=== PATIENT | female | born 1960 | race Caucasian/White ===

== ENCOUNTER 2016-10-06 19:05 | Emergency (ER) | payer MEDICARE, OTHER ==
[2016-10-06 19:15] VITALS: BP 139/96
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
--- OUTSIDE RECORDS SUMMARY | 2016-10-06 20:20 | XMS REPORT | Continuity of Care Document ---
:1960 Author Organization [place] [place] [address] Care Team Providers Name Role Phone Provider, None Per Patient Primary Care Provider Unavailable Source Comments This disclosure is being made pursuant to the [employer] program and maynot contain all information available regarding this patient.[facility] Active Allergies and Adverse Reactions Allergen Noted Date Severity Reactions Comments Ciprofloxacin 09/04/2016 Medium Nausea And Vomiting Codeine 09/04/2016 Medium Nausea And Vomiting Latex 09/04/2016 Low Rash Morphine 09/04/2016 Medium Nausea And Vomiting Current Medications Be aware that medications may not be up to date as of this document. Alwaysverify current medications with the patient. Prescription Sig. Disp. Refills Start Date End Date Status amoxicillin (AMOXIL) Take 1 oral q 8 30 capsule 0 09/04/2016 Active 500 MG capsule hour for 10 days benzonatate (TESSALON Take 1 capsule by 30 capsule 0 09/04/2016 Active PERLES) 100 MG capsule mouth every 6 (six) hours as needed for Cough. Active Problems Not on file Most Recent Encounters Date Type Specialty Providers Description 09/04/2016 Office Visit Family Medicine Subacute maxillary sinusitis (Primary Dx); Acute pharyngitis, unspecified etiology Social History Tobacco Use Types Packs/Day Years Used Date Never Assessed Last Filed Vital Signs Vital Sign Reading Time Taken Blood Pressure 128/78 09/04/2016 6:13 PM CDT Pulse 86 09/04/2016 6:13 PM CDT Temperature 35.8 C (96.4 F) 09/04/2016 6:13 PM CDT Respiratory Rate 16 09/04/2016 6:13 PM CDT Height - - Weight 75.388 kg (166 lb 3.2 oz) 09/04/2016 6:13 PM CDT Body Mass Index - - Oxygen Saturation 98% 09/04/2016 6:13 PM CDT Plan of Care Health Maintenance Due Date Last Done Comments Hepatitis C Screening 02/02/1980 Tetanus/Pertussis (1 - Tdap) 1981 Pap Smear 1983 Colonoscopy 02/02/2012 Mammogram 02/02/2012 Well Adult Visit 02/02/2012 Influenza Immunization (#1) 2015 Results from Last 3 Months AMB POCT Rapid Strep A (09/04/2016) Component Value Range Rapid Strep A Screen Positive(A) Negative
--- OUTSIDE RECORDS SUMMARY | 2016-10-06 20:20 | XMS REPORT | Continuity of Care Document ---
:1960 Author Organization [facility] ([facility]) Address [address] [place] [address] Phone [phone] Care Team Providers Name Role Phone Valeriano Herbert Primary Care Provider [phone] Source Comments This disclosure is being made pursuant to the Care Everywhere program, applicable federal and state laws, and may not contain all informaitonavailable regarding this patient.[facility] ([facility]) Active Allergies and Adverse Reactions Allergen Noted Date Severity Reactions Comments Ciprofloxacin 01/11/2011 Nausea & Vomiting Codeine Nausea & Vomiting Latex 05/22/2011 Rash Morphine 02/16/2010 Nausea & Vomiting Current Medications Prescription Sig. Disp. Refills Start End Date Status Date CALCIUM Take by mouth Active CARBONATE/VITAMIN daily. D3 (CALCIUM + D PO) MULTIVITAMIN PO Take by mouth. Active INFLIXIMAB inject Active (REMICADE IV) intravenously every 6 weeks. albuterol 90 Use 2 Puffs by 6.7 g 11 Active mcg/Actuation inhalation every 4 inhaler 4 hours as needed. Indications: cough fluocinoNIDE 0.05 % Apply topically 2 15 g 3 Active topical ointment times daily 5 fluocinoLONE 0.01 % Apply nightly x2 118 mL 11 Active topical oil weeks then 5 2-3x/week as needed to scalp. Repeat nightly use for 2 weeks with flares. halobetasol 0.05 % Use on affected 15 g Active topical cream area twice daily 5 for two weeks then twice daily 3x/week for 2 weeks. Repeat 4 week cycle as needed fluticasone 50 Use 2 sprays in 16 g 5 Active mcg/Actuation nasal each nostril 6 spray daily. clobetasol 0.05 % Apply topically 30 g 2 Active ointment twice daily x 2 6 weeks then twice daily on Sat/Sun only x2 weeks; repeat 4 week cycle as needed. atorvastatin 40 mg Take 1 tablet (40 30 tablet 11 Active tablet mg total) by 6 mouth every evening. DULoxetine 60 mg XR Take 1 capsule 30 capsule 11 Active capsule (60 mg total) by 6 mouth daily. DULoxetine 30 mg XR Take 1 capsule 30 capsule 11 Active capsule (30 mg total) by 6 mouth at bedtime. VOLTAREN 1 % Apply 2 g 100 g 2 Active topical gel topically 2 times 6 daily. estradiol (ESTRACE) Use 0.5 gram 42.5 g Active 0.01 % vaginal twice a week as 6 cream directed tolterodine 2 mg Take 1 tablet (2 60 tablet 3 Active tablet mg total) by 6 mouth 2 times daily. mirabegron Take 1 tablet (25 30 tablet 11 Active (MYRBETRIQ) 25 mg mg total) by 6 XR tablet mouth daily. trimethoprim-sulfam Take 1 tablet by 14 tablet 0 Active ethoxazole 160-800 mouth 2 times 6 mg per tablet daily. cyclobenzaprine 5 Take 1 tablet (5 60 tablet 3 Active mg tablet mg total) by 7 mouth 3 times daily as needed. TENS Units tenzin 1 Each daily as 1 Each 0 Active needed. 7 traMADol 50 mg Take 1 tablet (50 60 tablet 2 Active tablet mg total) by 7 mouth 2 times daily with meals as needed for pain. clobetasol 0.05 % Apply twice daily 50 mL 11 Active topical solution x2 weeks to 7 affected scalp then weekends x2 weeks; repeat cycle as needed valACYclovir 500 mg Take 1 tablet 30 tablet 3 Active tablet (500 mg total) by 7 mouth daily. gabapentin 300 mg Take 3 capsules 90 capsule 6 Active capsule (900 mg total) by 7 mouth at bedtime. gabapentin 300 mg Take 3 capsules 90 capsule 4 09/15/19 Discontinued capsule (900 mg total) by 7 17 mouth at bedtime. azithromycin 250 mg Take 2 tablets 6 tablet 0 09/13/19 Discontinued tablet today, then 1 7 17 tablet daily for 4 days Active Problems Problem Noted Date Urge incontinence 04/17/2016 Cataract, nuclear sclerotic, both eyes 03/08/2016 History of nonmelanoma skin cancer 06/14/2015 Sebopsoriasis 06/14/2015 Chronic low back pain 10/05/2014 Spondylosis of lumbar region without myelopathy or radiculopathy 09/29/2014 Myofascial muscle pain 09/29/2014 Dyspareunia 06/16/2014 Facet arthropathy 06/09/2014 Lumbar facet arthropathy 09/19/2013 HLD (hyperlipidemia) 06/17/2013 Trochanteric bursitis 10/23/2012 Fibromyalgia 10/11/2012 Atypical Choroidal nevus, Left eye 01/22/2012 Mitral valve prolapse 07/03/2011 Depression 05/26/2011 Hot flashes 05/26/2011 Rheumatoid arthritis of multiple sites without rheumatoid factor 06/10/2010 Overview: Symptoms started in 2008. RF(-), CCP(+). Tx history: methotrexate since 01/2010 helped. hydroxychloroquine since 04/2010. (last eye exam 12/2011) Arava 2013 Resolved Problems Problem Noted Date Resolved Date Rash 06/14/2015 11/23/2015 Radicular pain of lumbosacral region 07/04/2013 05/07/2015 Left shoulder pain 07/01/2013 05/26/2014 Urinary frequency 06/17/2013 12/10/2013 Myofascial pain 10/23/2012 10/02/2013 Low back pain 10/23/2012 12/10/2013 Pain in joint, shoulder region 10/09/2012 10/02/2013 Health education/counseling 10/02/2012 06/17/2013 Health education/counseling 01/03/2012 07/09/2012 Lipids abnormal 08/14/2011 06/17/2013 Other physical therapy 06/26/2011 06/17/2013 Pyelonephritis 05/18/2011 11/15/2011 Overview: 04/2011 Right shoulder pain 03/01/2011 05/26/2014 Most Recent Encounters Date Type Specialty Providers Description 10/04/2016 Pharmacy Visit 09/27/2016 Pharmacy Visit 09/26/2016 Office Visit Orthopaedic FeminoDaryl, Dx: Bilateral foot MD pain (Primary Dx) Mi Bowser, PA-C 09/26/2016 Pharmacy Visit 09/14/2016 Office Visit Med Rheumatology Noah Go, Dx: Rheumatoid arthritis of multiple sites without rheumatoid factor (Primary Dx) 09/12/2016 [facility]fusion Noah Go, Dx: Rheumatoid Encounter Center arthritis of multiple sites without rheumatoid factor 09/12/2016 Office Visit Ophthalmology - Louie uSarez Dx: Myopia with Specialty MD Bre astigmatism, bilateral (Primary Dx) 09/11/2016 Office Visit Ophthalmology - Default, Other Subj: Appointment Specialty Billg - Defo Canceled 09/11/2016 Office Visit Ophthalmology - Default, Other Dx: Choroidal nevus, Specialty Billg - Defo left (Primary Dx) Desirae Gordon MD 09/11/2016 Pharmacy Visit 08/04/2016 Pharmacy Visit 08/02/2016 Pharmacy Visit 08/01/2016 [facility] Cancer Infusion Noah Go, Dx: Rheumatoid Encounter Center arthritis of multiple sites without rheumatoid factor 08/01/2016 Office Visit Ophthalmology - Louie Suarez Dx: Regular Specialty MD Bre astigmatism, bilateral (Primary Dx) 08/01/2016 Pharmacy Visit 07/12/2016 Office Visit Dermatology Jorge Hendricks MD Dx: Sebopsoriasis (Primary Dx) 07/12/2016 Office Visit Obg Urogynecology Valerio Sutton, Dx: Urge incontinence (Primary Dx) 07/12/2016 Pharmacy Visit 07/11/2016 Office Visit Ophthalmology Louie Rueda Dx: Cataract, Specialty MD Bre nuclear sclerotic, both eyes (Primary Dx) 07/10/2016 Pharmacy Visit Immunizations Name Dates Previously Given Next Due Influenza, PF 04/11/2012,03/28/2011 Influenza, quadrivalent PF 05/22/2016,02/09/2016,02/03/2015,02/05/2014,02/12 Novel Influenza H1N1, PF 02/11/2009 Social History Tobacco Use Types Packs/Day Years Used Date Never Smoker Smokeless Tobacco: Never Used Tobacco Cessation:Counseling Given: Yes Comments: Alcohol Use Drinks/Week oz/Week Comments No Last Filed Vital Signs Vital Sign Reading Time Taken Blood Pressure 129/74 09/14/2016 1:40 PM CDT Pulse 81 09/14/2016 1:40 PM CDT Temperature 36.9 C (98.4 F) 09/14/2016 1:40 PM CDT Respiratory Rate 16 09/12/2016 9:48 AM CDT Height 1.638 m (5' 4.49") 09/12/2016 9:48 AM CDT Weight 75.5 kg (166 lb 7.2 oz) 09/14/2016 1:40 PM CDT Body Mass Index 28.14 09/14/2016 1:40 PM CDT Oxygen Saturation 99% 09/12/2016 9:48 AM CDT Plan of Care Patient Goal Type Goal Diet Increase water intake Exercise Exercise 3x per week (30 min per time) Result Component LDLC below 130 Lifestyle Increase physical activity wants to be pain free Date Type Specialty Providers Description 10/19/2016 Appointment Orthopaedic Daryl Martínez MD Subj: Appointment [address] [address] [phone] (Fax) 10/26/2016 Appointment Cancer Infusion Center Noah Go MD Chief Comp: Patient [address] [place] [address] Visit [phone] (Fax) 11/23/2016 Appointment Family Practice Valeriano Herbert MD Subj: Appointment [address] [place] [address] [phone] (Fax) 12/07/2016 Appointment [facility] Infusion [facility] Noah Go MD Chief Comp: Patient [address] [place] [address] Visit [phone] (Fax) 01/22/2017 Appointment Ophthalmology - Default, Other Subj: Appointment Specialty Billg - Defo Scheduled [address] [place] [address] [phone] (Fax) 01/22/2017 Appointment Ophthalmology - Default, Other Billg - Defo [address] [place] [address] [phone] (Fax) Subj: Appointment Specialty Desirae Gordon MD [address] [place] [address] [phone] (Fax) Scheduled 05/17/2017 Appointment Med Rheumatology Noah Go MD Subj: Appointment [address] [place] [address] [phone] (Fax) Health Maintenance Due Date Last Done Comments Hepatitis B Vaccine (1 of 3 - 1960 Primary Series) MMR Vaccine 02/02/1980 Cervical Cancer Screening 02/02/1992 Sigmoidoscopy Colon Cancer 02/02/2012 Screening Mammogram 11/22/2016 11/23/2015, Additional history exists 06/12/2014, 02/27/2013 FOBT Colon Cancer Screening 11/24/2016 11/25/2015, 11/17/2014, 03/01/2013 Td Vaccine 05/26/2019 05/26/2009 Lipid Disorder Screening 11/22/2020 11/23/2015, Additional history exists 12/14/2014, 10/27/2013 Colonoscopy 02/28/2022 02/29/2012 HCV Screening Completed 02/16/2010 Tdap Vaccine Addressed 11/15/2011 Overridden with the (Previously intention of not completed) completing the topic Influenza Vaccine: Seasonal Completed 05/22/2016, Additional history exists 02/09/2016, 02/03/2015 Procedures from Last 3 Months Procedure Name Priority Date/Time Associated Diagnosis Comments DSTRJ ALL PRMLG Routine 07/26/2016 9:45 PM Actinic keratosis Results for this 2-14 EA CDT procedure are in the results section. DSTR ALL PRMLG 1ST Routine 07/26/2016 9:45 PM Actinic keratosis Results for this LES CDT procedure are in the results section. Results from Last 3 Months DESTRUCTION PREMALIGNANT LESIONS (07/26/2016 9:45 PM) Narrative Jorge Hendricks MD 07/26/20169:45 PM Dermatology Clinic Note Encounter Date: 07/12/2016 Subjective: History of Present Illness: This 56 y.o. female follows up for history of non-melanoma skin cancer, sebopsoriasis, and HSV of the left hand.The patient was last seen 03/13/16 when Valtrex, clobetasol were continued and intralesional Kenalog injection was performed to the scalp. The patient reports a thick area on her posterior scalp which was injected with Kenalog at her last visit. It had gone away but recurred in a less severe manner.She has not used clobetasol much on it.She does not desire injection today. Her daughter has told her she has "white spots" on her back.The patient otherwise denies any new, rapidly growing, changing, painful, itching, bleeding, or otherwise concerning lesions on the skin. The patient has no other skin concerns. Past Medical History: 1) Nephrolithiasis 2) Rheumatoid arthritis - Symptoms started in 2008. RF(-), CCP(+). - Tx history: - methotrexate since 01/2010 helped. - hydroxychloroquine since 04/2010. (last eye exam 12/2011) - Arava 2013 - on infliximab Q6 weeks. 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 9) Depression 10) Hysterectomy, total abdominal 11) Dyspareunia 12) Ovarian cyst removal 13) Medication adverse reactions: (1) Latex -> Rash (2) Ciprofloxacin -> Nausea & Vomiting (3) Codeine -> Nausea & Vomiting (4) Morphine -> Nausea & Vomiting 14) Non-melanoma skin cancers (1) Skin, left superior shoulder, shave biopsy (09/14/14): Superficial basal cell carcinoma. Status post curettage and electrofulguration on (10/29/14) (2) Skin, left forehead, shave biopsy (12/14/14): Basal cell carcinoma. (3) Basal cell carcinoma, Left forehead, s/p Mohs (01/15/15) (4) Skin, central back, shave biopsy (03/15/15): Basal cell carcinoma. - The margins are uninvolved in the plane of sectioning. 15) Recurrent papulopustular (?) eruption on the palms/soles: History: - Ongoing since the late , itches and is sometimes painful, and resolves after 1-2 weeks. - Appears like small white "bumps" Work-up: - (06/26/14): Skin biopsy left lower lateral palm: Subcorneal epidermal necrosis with dermal acute and chronic inflammation (see comment). Comment: The histopathologic picture appears not entirely diagnostic, although an infection, response to exogenous trauma, and palmoplantar pustulosis cannot excluded. Clinicopathologic correlation is recommended. Treatment: Status post pre [facility] Medicine treatment: - Cephalexin with resolution Status post 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 Comment: The histopathologic features could be seen in conjunction with the documented herpetic infection. In the absence of the microbiologic data, the histopathologic diagnosis also would include fixed drug eruption. Treatment: - Valtrex (06/14/15) - (12/06/15) For flares, increase to 500 twice daily x 3 days; will not increase further due to history of headaches with 1000 mg dose. 20) 2 cm skin colored mobile ill-defined tender nodule on right neck - differential diagnosis: lymphadenitis vs lipoma vs cyst vs lymphoma - Right neck, aspiration (12/06/15): Polymorphous population of lymphocytes consistent with a reactive lymph node. 21) Microscopic hematuria - Negative work-up 22) Bladder urge incontinence 23) Actinic keratoses - Cryotherapy 24) Seborrheic keratoses Social History: Currently disabled since Mar 2014. 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 , 2 children. Never tobacco. Denies EtOH. Family History: Father skin non-melanoma skin cancer. Medications: Outpatient Medication Currently Taking Medication Sig Refill albuterol 90 mcg/Actuation inhaler Use 2 Puffs by inhalation every 4 hours as needed. Indications: cough 11 atorvastatin 40 mg tablet Take 1 tablet (40 mg total) by mouth every evening. 11 CALCIUM CARBONATE/VITAMIN D3 (CALCIUM + D PO) Takeby mouth daily. clobetasol 0.05 % ointment Apply topically twice daily x 2 weeks then twice daily on Sat/Sun only x2 weeks; repeat 4 week cycle as needed. 2 clobetasol 0.05 % topical solution Apply topically 2 times daily for 2 weeks, then nightly for 2 weeks, then 2 to 3 times per week thereafter. Repeat nightly use for 2 weeks with flares. 3 cyclobenzaprine 5 mg tablet Take 1 tablet (5 mg total) by mouth 3 times daily as needed. 3 DULoxetine 30 mg XR capsule Take 1 capsule (30 mg total) by mouth at bedtime. 11 DULoxetine 60 mg XR capsule Take 1 capsule (60 mg total) by mouth daily. 11 estradiol (ESTRACE) 0.01 % vaginal cream Use 0.5 gram twice a week as directed 11 fluocinoLONE 0.01 % topical oil Apply nightly x2 weeks then 2-3x/week as needed to scalp. Repeat nightly use for 2 weeks with flares. 11 fluocinoNIDE 0.05 % topical ointment Apply topically 2 times daily 3 fluticasone 50 mcg/Actuation nasal spray Use 2 sprays in each nostril daily. 5 halobetasol 0.05 % topical cream Use on affected area twice daily for two weeks then twice daily 3x/week for 2 weeks. Repeat 4 week cycle as needed 11 INFLIXIMAB (REMICADE IV) injectintravenously every 6 weeks. mirabegron (MYRBETRIQ) 25 mg XR tablet Take 1 tablet (25 mg total) by mouth daily. 11 MULTIVITAMIN PO Takeby mouth. TENS Units tenzin 1 Each daily as needed. 0 traMADol 50 mg tablet Take 1 tablet (50 mg total) by mouth 2 times daily with meals as needed for pain. 2 valACYclovir 500 mg tablet Take 1 tablet (500 mg total) by mouth daily. 3 VOLTAREN 1 % topical gel Apply 2 g topically 2 times daily. 2 Allergies: Allergies Allergen Reactions Latex Rash Ciprofloxacin Nausea & Vomiting Codeine Nausea & Vomiting Morphine Nausea & Vomiting Review of Systems: Skin Establ Pt: The patient denies any new rash, pruritus, or lesions that are symptomatic, changing or bleeding, except as per HPI. Objective: Physical exam: This is a well developed, well-nourished female in no acute distress, with a pleasant affect.Waist-up skin, which includes the head/face, neck, both arms, chest, back, abdomen, digits and/or nails, was examined. -There is a thick hyperkeratotic plaque on the posterior scalp -There are erythematous macules with overlying adherent scale on the left upper extremity -There are soler to brown waxy stuck-on appearing papule(s) on the trunk -There are no other skin lesions of concern in the areas examined. Impression: 1. Sebopsoriasis, adequately controlled on topical steroids and anti-dandruff shampoos with one small recalcitrant plaque on the posterior scalp 2. HSV of the left palmar hand, quiescent on suppressive Valtrex, with prior headaches at 1000 mg dosing of Valtrex 3. History of non-melanoma skin cancers, as per past medical history. No clinical evidence of recurrence 4. Eczematous dermatitis, controlled with as needed fluocinonide a few times a month - not addressed today 5. Rheumatoid arthritis, on infliximab as per rheumatology 6. History of reactive lymph node on the right neck - s/p FNA 12/06/2015 7. Actinic keratoses, left arm. 8. Seborrheic keratoses Plan: 1. Clinical findings discussed with the patient - discussed that seborrheic keratoses are a benign diagnosis 2. Cryotherapy performed to actinic keratoses per below. 3. Continue Valtrex 500 mg daily. For flares, increase to 500 twice daily x 3 days; will not increase further due to history of headaches with 1000 mg dose. 4. For eczematous patches, continue fluocinonide 0.05% ointment twice daily until resolved. Repeat as needed. 5. Clobetasol 0.05% solution twice daily to the posterior scalp for two weeks then decrease to Sat/Sun for two weeks. Repeat 4-weeks cycle as needed. 6. Continue anti-seborrheic shampoos in rotation. 7. [place] use of emollients, such as white petrolatum or Aquaphilic, was recommended at least twice a day and immediately after bathing or swimming. Dry skin handout given 8. Recommend sunscreens SPF #30 or greater, protective clothing and avoidance of tanning beds. 9. Follow up 12 months. Procedure Performed: AK destruction Area affected: upper extremity Location details: left lower arm and left upper arm Number of lesions: 2 Additional Procedure Detail: The above described lesions were treated with liquid nitrogen cryotherapy to achieve a freeze border of 1-2 mm. Post-cryotherapy wound care instructions were provided. Explicit verbal and written wound care instructions were provided. The patient left the Dermatology Clinic in good condition. Jorge Hendricks MD staffed the patient and was physically present for the entire above minor procedure(s). Staff Physician Comments: Staff Involved: Staff and Resident/Fellow Osiel Grace MD Teaching Statement I have interviewed and examined the patient and confirm the pertinent findings.I have discussed the case with the resident/fellow and agree with the findings and plan as documented. Jorge Hendricks MD
== END 2016-10-06 20:59 | disposition home or self-care (01) ==
LOC: ER 19:05
DX: S66.912A Strain of unspecified muscle, fascia and tendon at wrist and hand level, left hand, initial encounter (principal); S96.912A Strain of unspecified muscle and tendon at ankle and foot level, left foot, initial encounter; W17.81XA Fall down embankment (hill), initial encounter